=== PATIENT | female | born 1970 | race African-American/Black ===

== ENCOUNTER → 2024-06-01 | Day surgery (SDC) | payer MEDICARE ==
[~2024-06-01] MED LIST: ALPRAZOLAM1 MG PO; ASPIRIN81 MG PO; CETIRIZINE HCL10 MG; FLONASE ALLERG9.9 ML INH; GAS RELIEF80 MG; LANSOPRAZOLE30 MG PO; LIDOCAINE HCL 2% LOCAL INJ 5 ML SDV VIAL INJ ONE; LIDOCAINE PATCHES; LINZESS145 MCG PO; LOSARTAN-HCTZ1 EAC1 PO; PHENYLEPHRINE HCL 1% 10 MG/ML VIAL ONE; PROPOFOL IV EMULSION 10 MG/ML 20 ML VIAL ONE; ROSUVASTATIN CA20 MG; SODIUM CHLORIDE 0.9% 100 ML ONE; TRIUMEQ 600-501 EACH PO; TYLENOL EXTRA500 MG PO; VENTOLIN HFA18 GM INH
[2024-06-01] MEDS: LACTATED RINGER'S 1,000 ML ONE (08:48)
[2024-06-01 09:50] VITALS: TEMP 97.9
[2024-06-01 10:10] VITALS: BP 148/97; PULSE 74; RESP 18; O2SAT 99
== END | disposition home or self-care (01) ==
LOC: OR 07:28
PROVIDERS: ATTEND Internal Medicine Gastroenterology
DX: Z12.11 Encounter for screening for malignant neoplasm of colon (principal); D12.0 Benign neoplasm of cecum; D12.3 Benign neoplasm of transverse colon; K59.00 Constipation, unspecified; K64.8 Other hemorrhoids; K21.9 Gastro-esophageal reflux disease without esophagitis; G47.33 Obstructive sleep apnea (adult) (pediatric); J43.9 Emphysema, unspecified; E66.01 Morbid (severe) obesity due to excess calories; I10 Essential (primary) hypertension; E78.5 Hyperlipidemia, unspecified; Z21 Asymptomatic human immunodeficiency virus [HIV] infection status; G89.29 Other chronic pain; M06.9 Rheumatoid arthritis, unspecified; M19.90 Unspecified osteoarthritis, unspecified site; M47.9 Spondylosis, unspecified; F41.9 Anxiety disorder, unspecified; F17.210 Nicotine dependence, cigarettes, uncomplicated; Z01.810 Encounter for preprocedural cardiovascular examination; Z79.82 Long term (current) use of aspirin; Z79.899 Other long term (current) drug therapy; Z68.35 Body mass index [BMI] 35.0-35.9, adult
CPT/HCPCS: 45384; 88305; 93005; J2003; J2371; J2704; J7050; J7121